=== PATIENT | male | born 1955 | race Caucasian/White ===

== ENCOUNTER 2019-09-21 09:09 | Day surgery (SDC) | payer MEDICARE, MEDICAID, SELFPAY ==
[2019-09-18 14:14] VITALS: BMI 28.5
[2019-09-21 09:40] VITALS: BP 161/95; PULSE 56; RESP 18; TEMP 36.3; O2SAT 97
--- NOTE | 2019-09-21 10:02 | ANES.PREANE2 ---
Pre-Anesthetic Assessment Pre-Anesthetic Assessment: Height/Weight: Height 1.73 m Weight 85.275 kg Temp Pulse Resp BP Pulse Ox 97.3 F L 56 L 18 161/95 97 09/21/19 09:40 09/21/19 09:40 09/21/19 09:40 09/21/19 09:40 09/21/19 09:40 Preop Diagnosis: Weight loss Proposed Procedure: Operation Date: 09/21/19 09:45 Proposed Procedures p EGD w/ poss biopsy [id number] R63.4 R19.5(Not Applicable) - Asaf Barahona MD s Colonoscopy w/ poss biopsy(Not Applicable) - Asaf Barahona MD Last intake: Intake Last Liquid Date 09/20/19 Last Liquid Time 21:00 Last Solid Date 09/19/19 Last Solid Time 17:00 Social: Social History: Tobacco and No alcohol Exam: Pre-Anes Outpt Exam: alert, oriented x 3, clear to auscultation bilaterally and regular rate & rhythm Airway: Submandibular: WNL Cervical ROM: WNL MP: 2 Dentition: False (upper) History/ROS: No significant history except as noted Pulmonary: Pulmonary: COPD and JOE CV/HEM: CV/HEM: HTN : : None reported Hepatic: Hepatic: None reported GI: GI: None reported Metabolic: Metabolic: Hyperlipidemia Musc/skel: Musc/skel: OA/DJD Neuropsych: Neuropsych: CVA (1992 left side weak, No residual) Anesthetic Plan: ASA status: 3 Anesthesia: Anesthesia Evaluation and MAC Risk of > 500 ml blood loss (7ml/kg in children): No PFSH Anesthesia PFSH: Medical History CVA (cerebral vascular accident) Hyperlipidemia Hypertension Surgical History History of bilateral cataract extraction History of colonoscopy (2009) History of hand surgery S/P cholecystectomy S/p nephrectomy Family History Denies family history of Anesthesia complication Bleeding disorder Social History Smoking and tobacco status: current every day smoker Alcohol intake: never Lives independently: Yes Household members: spouse Current occupational status: disabled History of recent travel: No Data Anesthesia Cardiac Studies: No Data to Display
[2019-09-21] MEDS: sodium chloride 0.9% 1,000 ML 30 ML IV (10:03)
--- NOTE | 2019-09-21 10:59 | W.PM.OPSFHP ---
Same Day Surgery H&P Indication for Procedure/HPI DATE OF PROCEDURE: September 21, 2019 CHIEF COMPLAINT/INDICATIONFOR SURGICAL PROCEDURE: bloating, fobt + PREOP DIAGNOSIS: Weight loss PLANNED PROCEDRUE: Operation Date: 09/21/19 09:45 Proposed Procedures p EGD w/ poss biopsy [id number] R63.4 R19.5(Not Applicable) - Asaf Barahona MD s Colonoscopy w/ poss biopsy(Not Applicable) - Asaf Barahona MD Medications/Allergies* Home Medications Medication Instructions Recorded Confirmed Type amlodipine 10 mg tablet 10 mg PO DAILY 05/30/19 09/21/19 History hydralazine 25 mg tablet 50 mg PO TID tab 05/30/19 09/21/19 History triamterene 37.5 1 tab PO DAILY 05/30/19 09/21/19 History mg-hydrochlorothiazide 25 mg tablet metoprolol tartrate 50 mg PO BID 09/18/19 09/21/19 History prednisone 20 mg PO DAILY 09/19/19 09/21/19 History Allergies/Adverse Reactions Allergy/AdvReac Type Severity Reaction Status Date / Time No Known Allergies Allergy Unverified 06/05/19 15:06 Current Medications: Generic Name Dose Route Start Last Admin Trade Name Freq PRN Reason Stop Dose Admin Sodium Chloride 1,000 mls @ 30 mls/hr 09/21/19 09:45 09/21/19 10:03 Sodium Chloride 0.9% IV 30 mls/hr .Q24H RAND Administration Pertinent History/Comorbid Conditions* Medical History (Updated 06/05/19 @ 15:25 by Asaf Barahona MD) CVA (cerebral vascular accident) Hyperlipidemia Hypertension Surgical History (Updated 06/05/19 @ 15:25 by Asaf Barahona MD) History of bilateral cataract extraction History of colonoscopy (2009) History of hand surgery S/P cholecystectomy S/p nephrectomy Family History (Updated 06/05/19 @ 15:11 by KRYSTYNA Garza) Denies family history of Anesthesia complication Bleeding disorder Social History Smoking and tobacco status: current every day smoker Alcohol intake: never Lives independently: Yes Household members: spouse Current occupational status: disabled History of recent travel: No Pertinent Exam Findings alert, oriented x 3 and regular rate & rhythm Recommendations Surgery/Procedure today Coding Level of Care Code Acute Retail Route Supervisor for Chg Nikki
[2019-09-21 11:31] VITALS: BP 116/67; PULSE 45; RESP 16; TEMP 36.1; O2SAT 97
--- NOTE | 2019-09-21 11:35 | ANE.PACU2 ---
Inpatient post-anesthesia follow up: Airway intact: Yes Vital signs: Temperature 97.0 F Pulse Rate 45 Respiratory Rate 16 Blood Pressure 116/67 Pulse Oximetry 97 Oxygen Delivery Me thod Nasal Cannula Oxygen Flow Rate 3.0 Fraction of Inspir ed Oxygen Hydration adequate: Yes Nausea and vomiting: No Pain level: 1 Mental status: Baseline
[2019-09-21 11:42] VITALS: BP 154/82; PULSE 49; RESP 18; O2SAT 97
== END 2019-09-21 11:50 | disposition home or self-care (01) ==
PROVIDERS: PCP Internal Medicine; Visit Provider Surgery
PROC: 0DJ08ZZ Inspection of Upper Intestinal Tract, Via Natural or Artificial Opening Endoscopic (ICD-10-PCS; CPT 43235; principal; 2019-09-21 09:45)
PROC: 0DJD8ZZ Inspection of Lower Intestinal Tract, Via Natural or Artificial Opening Endoscopic (ICD-10-PCS; CPT 45378; 2019-09-21 09:45)
DX: K29.70 Gastritis, unspecified, without bleeding (principal); K29.80 Duodenitis without bleeding; R63.4 Abnormal weight loss; Z68.28 Body mass index [BMI] 28.0-28.9, adult; R19.5 Other fecal abnormalities; R14.0 Abdominal distension (gaseous); Z79.52 Long term (current) use of systemic steroids; Z86.73 Personal history of transient ischemic attack (TIA), and cerebral infarction without residual deficits; E78.5 Hyperlipidemia, unspecified; I10 Essential (primary) hypertension; F17.210 Nicotine dependence, cigarettes, uncomplicated
CPT/HCPCS: 12345; 45385; 88305; J2704; J7030

== ENCOUNTER 2019-10-12 10:28 | Outpatient (CLI) | payer MEDICARE, SELFPAY ==
--- NOTE | 2019-10-12 10:36 | CT_ITS ---
WS: [id number] LDCT LUNG CANCER SCREENING TECHNIQUE: Noncontrast CT of the chest with coronal and sagittal reformatted images. CLINICAL INFORMATION: NICOTINE DEPENDENCE COMPARISON: None. DLP: 54.52 mGy.cm DIvol: 1.[address] scans at [facility] use at least one of these dose optimization techniques: automat ed exposure control; mA and/or kV adjustment per patient size (includes targeted exams where dose is matched to clinical indication); or iterative reconstruction. FINDINGS: Moderate chronic emphysematous changes. No suspicious pulmonary opacities. Slight atelectasis left lo wer lobe. No mediastinal or hilar lymphadenopathy. Coronary calcification. Calcified hilar nodes. Cho lecystectomy clips. CT/CT lung screening [id number] IMPRESSION: LUNG-RADS: 1-Negative FOLLOW UP: 12 Month: Continue annual screening with LDCT
== END 2019-10-12 10:29 | disposition home or self-care (01) ==
PROVIDERS: PCP Internal Medicine; Visit Provider Internal Medicine
DX: Z12.2 Encounter for screening for malignant neoplasm of respiratory organs (principal); F17.218 Nicotine dependence, cigarettes, with other nicotine-induced disorders
CPT/HCPCS: G0297

== ENCOUNTER → 2020-07-03 11:20 | Outpatient (BNVA) | payer MEDICARE, SELFPAY | PROVIDERS: PCP Internal Medicine; Referring Provider Internal Medicine; Visit Provider Podiatrist Foot & Ankle Surgery | DX: M79.673 Pain in unspecified foot (principal); M21.611 Bunion of right foot | CPT/HCPCS: 73630 ==

== ENCOUNTER 2020-07-31 12:14 | Outpatient (CLI) | payer MEDICARE, SELFPAY ==
--- NOTE | 2020-07-31 12:18 | USCV_ITS ---
Gonzalo Angela Age: 65 Gender: M : 1955 Exam Date: 07/31/2020 12:32 Ordering Phys: Mame Alfaro MD Technologist: La Ghotra [place] [facility] [place]B BP: 114 / 67 HR: 62 Rhythm: Sinus Technical Quality: Adequate MEASUREMENTS (Male / Female) Normal Values 2D ECHO LV Diastolic Diameter PLAX 5.2 cm 4.2 - 5.9 / 3.9 - 5.3 cm LV Systolic Diameter PLAX 3.2 cm LV Chamber Size 3.3 cm IVS Diastolic Thickness 1.6 cm 0.6 - 1.0 / 0.6 - 0.9 cm IVS Systolic Thickness 1.7 cm LVPW Diastolic Thickness 1.6 cm 0.6 - 1.0 / 0.6 - 0.9 cm LVPW Systolic Thickness 1.9 cm RV Chamber Size 3.5 cm LVOT Diameter 2.1 cm LV Ejection Fraction 2D Teich 68.8 % LV Ejection Fraction MOD 2C 45.7 % LV Ejection Fraction 2C AL 45.4 % LA Diameter 4.0 cm LA Width 3.9 cm LA Height 4.2 cm RA Width 4.4 cm RA Height 4.6 cm Aorta at Sinotubular Diameter 3.7 cm M-MODE LV Diastolic Diameter MM 5.5 cm 4.2 - 5.9 / 3.9 - 5.3 cm LV Systolic Diameter MM 2.3 cm LV Ejection Fraction MM Teich 88.3 % IVS Diastolic Thickness MM 1.4 cm 0.6 - 1.0 / 0.6 - 0.9 cm IVS Systolic Thickness MM 1.6 cm LVPW Diastolic Thickness MM 1.4 cm 0.6 - 1.0 / 0.6 - 0.9 cm LVPW Systolic Thickness MM 1.7 cm Aortic Annulus Diameter 3.6 cm LA Ao Ratio MM 1.3 MV E Point Septal Separation 0.4 cm DOPPLER AV Peak Velocity 171.0 cm/s LVOT Peak Velocity 139.0 cm/s AV Area Cont Eq vti 3.0 cm squared AV Area Cont Eq pk 2.9 cm squared MV Area PHT 3.7 cm squared Mitral E to A Ratio 0.9 MV E' Velocity 44.0 cm/s Mitral E to MV E' Ratio 8.2 Mitral E to LV E' Lateral Ratio 11.9 Mitral E to LV E' Septal Ratio 6.3 TR Peak Velocity 242.2 cm/s TR Peak Gradient 23.5 mmHg TR Mean Velocity 228.1 cm/s TR Mean Gradient 21.2 mmHg TR Velocity Time Integral 28.6 cm TV Peak E Velocity 63.0 cm/s PV Peak Velocity 72.0 cm/s RV Acceleration Time 0.2 s RV Ejection Time 0.4 s RV AcT/ET 0.5 FINDINGS Left Ventricle Normal left ventricular size. LV systolic function is normal with EF of 55-60%. Regional wall motion abnormalities can not be ruled out because of poor visualization. Grade 1 diastolic dysfunction Right Ventricle The right ventricle is normal in size and function. Right Atrium Not well visualized Left Atrium Not well visualized Mitral Valve Structurally normal mitral valve without significant stenosis or prolapse. There is no mitral regurgitation. Aortic Valve Aortic valve is thickened without significant stenosis. There is trace aortic regurgitation. Tricuspid Valve Structurally normal tricuspid valve without significant stenosis or regurgitation. Insufficient TR jet to calculate RVSP Pulmonic Valve Structurally normal pulmonic valve without significant stenosis. There is trace pulmonic regurgitation. Pericardium Normal pericardium without effusion. Aorta Normal ascending aorta dimension. CONCLUSIONS This is a limited quality echocardiogram because of poor ultrasonic windows. LV systolic function is normal with EF of 55-60%. Regional wall motion abnormalities can not be ruled out because of poor visualization. Grade 1 diastolic dysfunction Aortic valve is thickened but no significant stenosis Trace aortic regurgitation and mild pulmonic regurgitation No comparison studies are available Toney Lerma MD (Electronically Signed) Final Date: 10 Aug 2020 13:40 S
== END 2020-07-31 12:15 | disposition home or self-care (01) ==
LOC: US 12:16
PROVIDERS: PCP Internal Medicine; Visit Provider Internal Medicine
DX: R60.9 Edema, unspecified (principal); R06.02 Shortness of breath; I35.8 Other nonrheumatic aortic valve disorders
CPT/HCPCS: 93306

== ENCOUNTER 2020-08-22 12:52 | Outpatient (CLI) | payer MEDICARE, SELFPAY ==
--- NOTE | 2020-08-22 13:04 | XR_ITS ---
WS: [id number] Exam: XR thoracic spine 3V* [id number] Date/Time of Exam: 08/22/2020 1:04 PM Reason For Exam: DEGENERATIVE SISC DISEASE Findings: In the AP projection, the thoracic spine is straight. In the lateral projection, the thoracic curve is well maintained. The intervertebral disc spaces are intact. No fractures or anomalies of the tho racic spine are noted. XR/XR thoracic spine 3V* [id number] IMPRESSION: Negative thoracic spine.
--- NOTE | 2020-08-22 13:05 | XR_ITS ---
WS: [id number] Exam: XR lumbar spine 2-3V* [id number] Date/Time of Exam: 08/22/2020 1:05 PM Reason For Exam: DEGENERATIVE DISC DISEASE No fracture or dislocation noted. Degenerative disc changes noted at all levels most marked at L5-S1. Spondylosis. Facet DJD at all levels. XR/XR lumbar spine 2-3V* [id number] IMPRESSION: 1. Moderate degenerative changes. No fracture or malalignment.
== END 2020-08-22 12:53 | disposition home or self-care (01) ==
PROVIDERS: PCP Internal Medicine; Visit Provider Internal Medicine
DX: M51.36 Other intervertebral disc degeneration, lumbar region (principal); M51.34 Other intervertebral disc degeneration, thoracic region
CPT/HCPCS: 72072; 72100

== ENCOUNTER 2020-09-06 10:12 | Outpatient (CLI) | payer MEDICARE, SELFPAY ==
--- NOTE | 2020-09-06 10:32 | MR_ITS ---
WS: [id number] MRI LUMBAR SPINE NONCONTRAST HISTORY: DDD/LUMBOSACRAL SPINE W/RADICULOPATHY COMPARISON: None available. TECHNIQUE: Sagittal and axial multisequence imaging is submitted. Mild increase in thoracic kyphosis. Mild scoliosis and curvature to the LEFT. Normal lumbar alignment with no compression fractures or marrow edema. Mild disc space narrowing and desiccation throughout the lumbar spine. Mild endplate hypertrophic ost eophytes. Conus terminates normally at L1-2 disc level. L1-L2: Small LEFT paracentral disc protrusion without stenosis. L2-L3: Mild annular disc bulging with a central disc protrusion and annular fissure. Disc narrows the lateral recesses and the subarticular foramina. There is disc contact upon the L3 nerve roots bilate rally. Mild central stenosis and mild foraminal stenosis. L3-L4: Mild annular disc bulging and osteophytic ridging. Mild ligamentum flavum disease and facet ar thritis. Small disc protrusion in the LEFT subarticular foramen. There is mild disc contact on the L4 nerve roots bilaterally but greatest on the LEFT. Mild bilateral foraminal stenosis, LEFT greater th an RIGHT. L4-L5: Diffuse annular disc bulging and osteophytic ridging. Focal disc protrusion paracentral with a nnular fissure. Disc or osteophyte encroaches into the LEFT lateral recess contacting the L5 nerve ro ot. Annular disc bulge and also contacts the LEFT L4 nerve root. Mild central stenosis. Mild RIGHT fo raminal stenosis. L5-S1: Diffuse annular disc bulging. There is a central moderate disc protrusion with annular fissure . Disc and osteophytes cause significant stenosis in the LEFT lateral recess and LEFT subarticular fo ramen. There is contact most significant on the LEFT S1 nerve root. Mild stenosis of the RIGHT latera l recess and foramen. LEFT kidney is not identified and may have been surgically removed. MR/MR lumbar spine wo con* [id number] IMPRESSION: 1. Moderate central disc protrusion with annular fissure L5-S1 causing signifi cant stenosis of the LEFT lateral recess and LEFT subarticular foraminal. There is significant contact on the LEFT S1 nerve root. 2. Mild stenosis of the RIGHT lateral recess and foramen due to disc and osteo phyte. 3. Central disc protrusion at L4-5 encroaching into the LEFT lateral recess co ntacting the L5 nerve root. 4. Mild central and bilateral foraminal stenosis at L4-5. 5. Mild bilateral foraminal stenosis at L3-4. 6. Mild central and bilateral foraminal stenosis at L2-3. 7. Disc encroachment into the lateral recesses and subarticular foramen at L2- 3. Disc encroachment upon the L3 nerve roots.
== END 2020-09-06 10:13 | disposition home or self-care (01) ==
PROVIDERS: PCP Internal Medicine; Visit Provider Internal Medicine
DX: M51.17 Intervertebral disc disorders with radiculopathy, lumbosacral region (principal); M51.27 Other intervertebral disc displacement, lumbosacral region; M48.061 Spinal stenosis, lumbar region without neurogenic claudication; M51.26 Other intervertebral disc displacement, lumbar region; M25.78 Osteophyte, vertebrae
CPT/HCPCS: 72148

== ENCOUNTER 2021-03-17 10:10 | Outpatient (CLI) | payer MEDICARE, SELFPAY ==
--- NOTE | 2021-03-17 10:22 | CT_ITS ---
WS: [id number] LDCT LUNG CANCER SCREENING TECHNIQUE: Noncontrast CT of the chest with coronal and sagittal reformatted images. CLINICAL INFORMATION: NICOTINE DEPENDENCE,CIGARETTES COMPARISON: CT October 11, 2025 DLP: 56.96 mGy.cm DIvol: 1.[address] scans at [facility] use at least one of these dose optimization techniques: automat ed exposure control; mA and/or kV adjustment per patient size (includes targeted exams where dose is matched to clinical indication); or iterative reconstruction. FINDINGS: Moderate chronic emphysematous changes. No suspicious pulmonary parenchymal normalities. No acute pul monary infiltrates. Normal caliber thoracic aorta. Coronary calcification. Calcified mediastinal and hilar nodes. No axillary lymphadenopathy. Cholecystectomy clips. Tiny esophageal hiatal hernia. CT/CT lung screening [id number] IMPRESSION: LUNG-RADS: 1-Negative FOLLOW UP: 12 Month: Continue annual screening with LDCT
== END 2021-03-17 10:11 | disposition home or self-care (01) ==
PROVIDERS: PCP Internal Medicine; Visit Provider Internal Medicine
DX: Z12.2 Encounter for screening for malignant neoplasm of respiratory organs (principal); F17.210 Nicotine dependence, cigarettes, uncomplicated
CPT/HCPCS: 71271

== ENCOUNTER 2021-06-26 11:10 | Outpatient (CLI) | payer MEDICARE, MEDICAID, SELFPAY ==
--- NOTE | 2021-06-26 12:03 | USCV_ITS ---
Gonzalo Angela Age: 66 Gender: M : 1955 Exam Date: 06/26/2021 12:17 Ordering Phys: Mame Alfaro MD Technologist: JAYLA Exam Location: [facility] [place] Indication: MURMUR BP: 130 / 70 HR: 51 Rhythm: Sinus Technical Quality: Technically difficult study MEASUREMENTS (Male / Female) Normal Values 2D ECHO LV Diastolic Diameter PLAX 5.3 cm 4.2 - 5.9 / 3.9 - 5.3 cm LV Systolic Diameter PLAX 3.3 cm IVS Diastolic Thickness 2.1 cm 0.6 - 1.0 / 0.6 - 0.9 cm IVS Systolic Thickness 2.2 cm LVPW Diastolic Thickness 1.4 cm 0.6 - 1.0 / 0.6 - 0.9 cm LVPW Systolic Thickness 1.6 cm LVOT Diameter 2.0 cm LV Ejection Fraction 2D Teich 66.6 % LV Ejection Fraction MOD 2C 40.4 % LV Ejection Fraction 2C AL 42.0 % LA Diameter 3.7 cm LA Width 4.2 cm LA Height 4.8 cm RA Width 3.6 cm RA Height 4.3 cm Aorta at Sinotubular Diameter 2.9 cm M-MODE Aortic Annulus Diameter 3.1 cm LA Ao Ratio MM 1.1 MV E Point Septal Separation 0.3 cm DOPPLER AV Peak Velocity 146.0 cm/s LVOT Peak Velocity 143.0 cm/s AV Area Cont Eq vti 3.0 cm squared AV Area Cont Eq pk 3.1 cm squared MV Peak Velocity 90.0 cm/s MV Area PHT 3.2 cm squared Mitral E to A Ratio 1.0 MV E' Velocity 50.5 cm/s Mitral E to MV E' Ratio 9.9 Mitral E to LV E' Lateral Ratio 8.7 Mitral E to LV E' Septal Ratio 11.5 TR Peak Velocity 190.6 cm/s TR Peak Gradient 14.5 mmHg TR Mean Velocity 146.4 cm/s TR Mean Gradient 9.2 mmHg TR Velocity Time Integral 57.9 cm TV Peak E Velocity 40.0 cm/s Right Atrial Pressure 3.0 mmHg Pulmonary Artery Systolic Pressu 17.5 mmHg PV Peak Velocity 100.0 cm/s RV Acceleration Time 0.1 s RV Ejection Time 0.4 s RV AcT/ET 0.3 FINDINGS Left Ventricle Normal left ventricular size and systolic function, EF 57 %. Moderate left ventricular hypertrophy. No regional wall motion abnormalities. Grade I/IV diastolic dysfunction (abnormal relaxation filling pattern), normal to mildly elevated filling pressures. Right Ventricle The right ventricle is normal in size and function. Right Atrium The right atrium is normal in size. Left Atrium The left atrium is normal in size. Mitral Valve Trace mitral valve regurgitation. Aortic Valve Thickened aortic valve. Mild aortic valve regurgitation. Tricuspid Valve Trace tricuspid valve regurgitation. Pulmonic Valve Mild pulmonary valve regurgitation. Pericardium No pericardial effusion. Aorta Normal ascending aorta dimension. CONCLUSIONS Normal left ventricular size and systolic function, EF 57 %. Moderate left ventricular hypertrophy. No regional wall motion abnormalities. Grade I/IV diastolic dysfunction (abnormal relaxation filling pattern), normal to mildly elevated filling pressures. Thickened aortic valve. Mild aortic valve regurgitation. Trace of mitral and tricuspid regurgitation Mild pulmonary valve regurgitation. There is no pericardial effusion. Compared to the study from 07/31/2020, there may not be a significant change Dr Alex Rod MD [facility] (Electronically Signed) Final Date: 27 June 2021 09:44 S
== END 2021-06-26 11:11 | disposition home or self-care (01) ==
PROVIDERS: PCP Internal Medicine; Visit Provider Internal Medicine
DX: R01.1 Cardiac murmur, unspecified (principal); I51.7 Cardiomegaly; I51.9 Heart disease, unspecified; I35.1 Nonrheumatic aortic (valve) insufficiency; I37.1 Nonrheumatic pulmonary valve insufficiency
CPT/HCPCS: 93306

== ENCOUNTER 2022-11-16 13:51 | Outpatient (CLI) | payer MEDICARE, SELFPAY ==
--- NOTE | 2022-11-16 14:08 | CT_ITS ---
WS: [id number] LDCT LUNG CANCER SCREENING TECHNIQUE: Noncontrast CT of the chest with coronal and sagittal reformatted images. CLINICAL INFORMATION: NICOTINE DEPENDENCE,CIGARETTES COMPARISON: CT 2020 DLP: 59.32 mGy.cm DIvol: Mean CTDIvol: 1.20 (mGy) All CT scans at [facility] use at least one of these dose optimization techniques: automat ed exposure control; mA and/or kV adjustment per patient size (includes targeted exams where dose is matched to clinical indication); or iterative reconstruction. FINDINGS: Moderate chronic emphysematous changes. No suspicious pulmonary parenchymal normalities. No acute pu lmonary infiltrates. Biapical lung fibrosis Normal caliber thoracic aorta. Coronary calcification. Calcified mediastinal and hilar nodes. No axil alvaro lymphadenopathy. Cholecystectomy clips. Tiny esophageal hiatal hernia. Adrenal glands are normal . Surgical clips LEFT upper quadrant. Cardiomegaly. IMPRESSION: CT/CT lung screening [id number] LUNG-RADS: 1-Negative FOLLOW UP: 12 Month: Continue annual screening with LDCT
== END 2022-11-16 13:52 | disposition home or self-care (01) ==
PROVIDERS: PCP Internal Medicine; Visit Provider Internal Medicine
DX: F17.210 Nicotine dependence, cigarettes, uncomplicated (principal); Z12.2 Encounter for screening for malignant neoplasm of respiratory organs
CPT/HCPCS: 71271

== ENCOUNTER → 2024-01-27 08:34 | Outpatient (BNVA) | payer MEDICARE, SELFPAY | PROVIDERS: PCP Internal Medicine; Referring Provider Internal Medicine; Visit Provider Student in an Organized Health Care Education/Training Program | DX: M71.341 Other bursal cyst, right hand (principal) | CPT/HCPCS: 99203 ==

== ENCOUNTER → 2024-03-06 10:32 | Outpatient (BNVA) | payer OTHER, MEDICAID, SELFPAY | PROVIDERS: PCP Internal Medicine; Visit Provider Specialist | DX: M71.342 Other bursal cyst, left hand | CPT/HCPCS: 73130 ==

== ENCOUNTER 2024-06-08 08:15 | Outpatient (CLI) | payer MEDICARE, SELFPAY ==
--- NOTE | 2024-06-08 08:25 | CT_ITS ---
WS: [id number] LDCT LUNG CANCER SCREENING TECHNIQUE: Noncontrast CT of the chest with coronal and sagittal reformatted images. CLINICAL INFORMATION: NICOTINE DEPENDENCE,CIGARETTES COMPARISON: None. DLP: 65.79 mGy.cm DIvol: Mean CTDIvol: 1.20 (mGy) All CT scans at [facility] use at least one of these dose optimization techniques: automated exposure control; mA and/or kV adjustment per patient size (includes targeted exams where dose is matched to clinical indication); or iterative reconstruction. FINDINGS: Moderate chronic emphysematous changes. No new suspicious pulmonary parenchymal abnormalities. Fibrotic lung apices. 4 mm noncalcified nodule RIGHT lung apex subsegmental atelectasis in the lung bases. Calcified granulomas RIGHT upper lobe Cardiomegaly. Surgical clips LEFT upper quadrant. Coronary calcification. Aortic calcification. Calcified mediastinal and hilar lymph nodes. Cholecystectomy clips. Tiny esophageal hiatal hernia. Adrenal glands are normal. Moderate spondylitic changes thoracic spine. Moderate thoracic kyphosis. Splenic granulomas. CT/CT lung screening [id number] IMPRESSION: LUNG-RADS: 2-Benign Appearance or Behavior FOLLOW UP: 12 Month: Continue annual screening with LDCT
== END 2024-06-08 08:16 | disposition home or self-care (01) ==
LOC: RAD 08:20
PROVIDERS: PCP Internal Medicine; Visit Provider Internal Medicine
DX: Z12.2 Encounter for screening for malignant neoplasm of respiratory organs (principal); F17.218 Nicotine dependence, cigarettes, with other nicotine-induced disorders; J43.9 Emphysema, unspecified; J98.11 Atelectasis; J84.10 Pulmonary fibrosis, unspecified; R91.1 Solitary pulmonary nodule; I51.7 Cardiomegaly; I25.10 Atherosclerotic heart disease of native coronary artery without angina pectoris; I70.0 Atherosclerosis of aorta; I89.8 Other specified noninfective disorders of lymphatic vessels and lymph nodes; Z90.49 Acquired absence of other specified parts of digestive tract; M47.894 Other spondylosis, thoracic region; D73.89 Other diseases of spleen
CPT/HCPCS: 71271